=== PATIENT | female | born 1995 | race Caucasian/White ===

== ENCOUNTER 2018-04-13 20:50 | Outpatient (CLI) | payer OTHER ==
[~2018-04-13 20:50] MED LIST: PREN1TAB71 PO
[2018-04-13 21:40] VITALS: BP 93/51; PULSE 83; RESP 20
--- NOTE | 2018-04-13 23:17 | PN ---
Triage Information Date/Time 04/13/2018 Reason for visit: Flu like symptoms Weeks of Gestation 28 weeks and 2 days /Para Additional information 22 years old with IUP at 28 weeks and 2 days presented with complaint of Flu like symptoms . She denies any leaking of fluid, vaginal bleeding decreased movement or any other complaint. Denies any complication during her pr enatal course. Objective Vitals are stable Heart Rate: 130's Heart Rate Comments Appropriate for gestational age and category 1 Contractions: None Exam General appearance: Alert and oriented x4 appears to be in mild distress Abdomen: Soft, gravid, fundal height consider gestational age NST: Appropriate for gestational age Extremities: No calf tenderness, no click no edema HEENT: Nasal congestion Disposition: Discharge Assessment/Plan IUP at 28 weeks and 2 days URI. Cannot rule out flu no obstetrical issue at this point No evidence of labor or PPROM Patient will be sent to emergency room for further evaluation Discussed with the patient about adequate hydration. labor precautions kick count discussed Follow-up with primary OB office within 48 hours after discharge from the hospital Can take Tylenol, Benadryl as needed as needed with adequate fluid hydration Follow recommendation of emergency room after being seen All questions were answered. LUPIS GORDILLO MD Apr 13, 2018 23:17
[2018-04-14] MEDS ORDERED: AZIT250T PO (00:30)
--- NOTE | 2018-04-14 05:32 | TRIAGE ---
OB Triage Datetime Report Generated by CPN: 04/14/2018 05:31 Datetime: 04/13/2018 22:15 Stage of : OB Triage Datetime: 04/13/2018 21:40 Stage of : OB Triage Assessment Type: Triage Maternal Assessment Level of Consciousness: Fully Conscious DTR's/Clonus: DTRs 2+; No Clonus Headache: Frontal (Annotations: 05/08) Blurred Vision: No Respiratory Effort: Unlabored; Regular Rhythm; Equal Expansion Breath Sounds, Left: Clear and Equal Breath Sounds, Right: Clear and Equal Nausea/Vomiting: Denies RUQ Epigastric Pain: Denies Lower Extremities Edema: None Degree: None Upper Extremities Edema: None Degree: None Facial Edema: None Temperature Route: Oral Fall Risk Assessment History of Falling: (0) No Secondary Diagnosis: (0) No Ambulatory Aid: (0) Bedrest/Nurse Assist IV Therapy: (0) No Gait: (0) Normal/Bedrest/Immobile Mental Status: (0) Oriented to Own Ability Fall Score: 0 Fall Risk Score Definition: No Risk: No action required Pain Assessment Pain Scale: 0 Pain Presence: None/Denies Pain Type: N/A Pain Assessment Comments: Sinus pressure headache 05/08 Datetime: 04/13/2018 21:33 Labor Evaluation Monitor Mode: Palpation (Annotations: [place] applied) Resting Tone [place]: Relaxed Heart Rate Monitor Mode: External US (Annotations: Applied) Datetime: 04/13/2018 20:35 Time of Arrival: 04/13/2018 20:35 EGA: 28.2 Arrived By: Ambulatory Arrived From: Home Chief Complaint: Flu like symptoms, Movement: Present Contractions: Denies/Absent Rupture of Membranes: Denies Vaginal Bleeding: None Vaginal Discharge: Denies Recent Sexual Intercouse: Denies Abdominal Trauma: Not Applicable Patient Complaints: Cough; Other Additional Patient Complaints: sore throat and cough Time Provider Notified: 04/13/2018 22:15 Provider Notified: Dr. Israel Initial Plan: CEFM Datetime: 04/07/2018 15:43 Fall Score: 0 Fall Risk Score Definition: No Risk: No action required Datetime: 04/07/2018 15:42 EGA: 27.3
== END 2018-04-13 23:20 | disposition home or self-care (01) ==
LOC: OBT 20:50 → L-D 20:51 → OBT 23:20
PROVIDERS: ATTEND Obstetrics & Gynecology
DX: O26.893 Other specified pregnancy related conditions, third trimester (principal); Z3A.28 28 weeks gestation of pregnancy; J06.9 Acute upper respiratory infection, unspecified
CPT/HCPCS: G0463

== ENCOUNTER 2018-04-13 23:33 | Emergency (ER) | payer OTHER ==
[~2018-04-13] VITALS: Ht 157.5 cm; Wt 100.7 kg
[2018-04-13 23:38] VITALS: Ht 157.5 cm; Wt 100.7 kg
[2018-04-14] MEDS ORDERED: AZIT250T PO (00:30)
--- NOTE | 2018-04-14 00:32 | ERD ---
ER Documentation Chief Complaint Chief Complaint cough/congestion x 3 days, 28 weeks . cleared by ob HPI 22-year-old females. She is 28-weeks . She was cleared by OB and she has no OB complaints. She is complaining of 2 days of cough and sore throat and congestion. Today it got much worse. No fever. She is been taking Robitussin but is not helping. ROS All systems reviewed and are negative except as per history of present illness. Medications Home Meds Active Scripts Azithromycin* (Zithromax*) 250 Mg Tablet, 250 MG PO .ZPACK DIRECTED, #6 TAB TAKE 500 MG (2 TABS) THE FIRST DAY THEN 250 MG (1 TAB) DAYS 2-5 Prov:MATI COTTRELL PA-C 04/14/18 Reported Medications Vit No.130/Iron/FA ( Tablet) 1 Each Tablet, 1 EACH PO 04/07/18 Discontinued Scripts Promethazine HCl/Codeine (Prometh-Codein 6.25-10 mg/5 ml) 5 Ml Syrup, 5 ML PO QHS, #100 Prov:SARAH SEPULVEDA PA-C 10/25/15 Benzonatate* (Tessalon Perle*) 100 Mg Capsule, 100 MG PO TID, #30 CAP Prov:SARAH SEPULVEDA PA-C 10/25/15 Allergies Allergies: Coded Allergies: No Known Drug Allergies (Verified Allergy, Unknown, 04/07/18) PMhx/Soc Medical and Surgical Hx: pt denies Medical Hx History of Surgery: Yes (TONSILLECTOMY ) Anesthesia Reaction: No Hx Neurological Disorder: No Hx Respiratory Disorders: No Hx Cardiac Disorders: No Hx Psychiatric Problems: No Hx Miscellaneous Medical Probl: No Hx Alcohol Use: Yes (prior to being ) Hx Substance Use: No Hx Tobacco Use: No Smoking Status: Never smoker FmHx Family History: No diabetes Physical Exam Vitals Vital Signs Date Temp Pulse Resp B/P (MAP) Pulse Ox O2 O2 Flow FiO2 Time Delivery Rate 04/13/18 97.8 99 18 114/56 97 23:38 (75) Physical Exam INITIAL VITAL SIGNS: Reviewed by me GENERAL: Awake, alert and oriented x 4, well appearing, nontoxic, speaking in full sentences. No acute distress HEAD: Atraumatic NECK: Supple. No masses. Full range of motion. No meningismus. No midline tenderness. EYES: EOMI. PERRL. EAR: No tenderness over the mastoids bilaterally. No exudates in the canals. TMs nonerythematous. NOSE: Normal nose. THROAT: No tonilar erythema or edema. No exudates. Uvula midline. No kissing tonsils. RESPIRATORY: Clear to auscultation bilaterally. Symmetric chest wall rise. No wheezing or rales. No accessory muscle use. CV: Regular rate and rhythm. No murmurs, rubs, or gallops. ABDOMEN: Soft, non-distended. Nontender. Negative [place]. Negative [place] point tenderness. No CVA tenderness bilaterally. No guarding. No rebound. : Deffered. Procedures/MDM Patient presents with bronchitis. Unlikely pneumonia. She is but has no OB complaints and was already cleared by labor and delivery. A [id number] prescription for azithromycin was given. Patient counseled regarding my diagnostic impression and care plan. Prior to discharge all questions answered. Pt agrees with treatment plan and understands strict return precautions. Pt is instructed to follow up with primary care provider within 24-48 hours. Precautionary instructions provided including instructions to return to the ER if not improving or for any worsening or changing symptoms or concerns. Departure Diagnosis: Primary Impression: Bronchitis Condition: Stable Patient Instructions: Bronchitis, Antiobiotic Treatment (Adult) Additional Instructions: Call your primary care doctor TOMORROW for an appointment during the next 1-2 days.See the doctor sooner or return here if your condition worsens before your appointment time. MATI COTTRELL PA-C Apr 14, 2018 00:32
[2018-04-14 00:41] VITALS: BP 108/59; PULSE 117; RESP 20
== END 2018-04-14 00:43 | disposition home or self-care (01) ==
LOC: FTE 23:33
DX: O99.511 Diseases of the respiratory system complicating pregnancy, first trimester (principal); J40 Bronchitis, not specified as acute or chronic; Z3A.28 28 weeks gestation of pregnancy
CPT/HCPCS: 99283

== ENCOUNTER 2018-05-09 07:43 | Outpatient (CLI) | payer OTHER ==
[~2018-05-09] VITALS: Ht 157.5 cm; Wt 107.2 kg
[~2018-05-09 07:43] MED LIST changes: +AZIT250T PO
[2018-05-09 08:10] VITALS: Ht 157.5 cm; Wt 107.2 kg
[2018-05-09 08:13] VITALS: BP 106/64; PULSE 104; RESP 19
--- NOTE | 2018-05-09 10:22 | PN ---
Triage Information Date/Time Reason for visit: Uterine contractions Weeks of Gestation 31+ /Para 3/1 Diabetes: none Hypertention: none Objective Vital Signs Date Temp Pulse Resp B/P (MAP) Pulse Ox O2 O2 Flow FiO2 Time Delivery Rate 05/09/18 98.2 104 19 106/64 Room Air 08:13 (78) Heart Rate: 140's Contractions: None Results/Medications Results 24 hrs Laboratory Tests Test 05/09/18 08:21 05/09/18 08:48 Urine Color YELLOW Urine Clarity CLOUDY A Urine pH 7.0 Urine Specific [place] 1.009 Urine Ketones NEGATIVE Urine Nitrite NEGATIVE Urine Bilirubin NEGATIVE Urine Urobilinogen NEGATIVE Urine Leukocyte Esterase 3+ H Urine Microscopic RBC 6 H Urine Microscopic WBC 9 H Urine Squamous Epithelial Cells MODERATE Urine Amorphous Crystals FEW A Urine Bacteria MODERATE Urine Hemoglobin NEGATIVE Urine Glucose NEGATIVE Urine Total Protein NEGATIVE Fibronectin NEGATIVE Disposition: Discharge Assessment/Plan BPP 12/08 CXL 4.1cm Macrobid is given Questions answered Follow up with her provider precautions discussed PHILLIP PACHECO M.D. May 09, 2018 10:22
[2018-05-09] MEDS ORDERED: NITR-58 PO (10:26)
--- NOTE | 2018-05-09 10:35 | TRIAGE ---
OB Triage Datetime Report Generated by CPN: 05/09/2018 10:35 Datetime: 05/09/2018 10:00 Stage of : OB Triage Maternal Assessment Level of Consciousness: Fully Conscious Labor Evaluation Frequency: 2UC/HR Monitor Mode: External Duration (sec)2399: 70-80 Quality: Mild Resting Tone [place]: Relaxed Heart Rate FHR Baseline Rate: 145 Monitor Mode: External US Variability: Moderate 6-25 bpm Accelerations: 15X15 Decelerations: None Category: Category I Pain Assessment Pain Scale: 0 Pain Goal: 3 Vaginal Exam Membrane Status: Intact Vaginal Bleeding: None Datetime: 05/09/2018 09:00 Stage of : OB Triage Maternal Assessment Level of Consciousness: Fully Conscious Labor Evaluation Frequency: 2UC/HR Monitor Mode: External Duration (sec)2399: 70-80 Quality: Mild Resting Tone [place]: Relaxed Heart Rate FHR Baseline Rate: 145 Monitor Mode: External US Variability: Moderate 6-25 bpm Accelerations: 15X15 Decelerations: None Category: Category I Pain Assessment Pain Scale: 0 Pain Goal: 3 Vaginal Exam Membrane Status: Intact Vaginal Bleeding: None Datetime: 05/09/2018 08:17 Assessment Type: Triage Maternal Assessment Level of Consciousness: Fully Conscious DTR's/Clonus: DTRs 2+; No Clonus Headache: Denies Blurred Vision: No Respiratory Effort: Unlabored; Regular Rhythm; Equal Expansion Breath Sounds, Left: Clear and Equal Breath Sounds, Right: Clear and Equal Nausea/Vomiting: Denies RUQ Epigastric Pain: Denies Lower Extremities Edema: None Degree: None Upper Extremities Edema: None Degree: None Facial Edema: None Fall Risk Assessment History of Falling: (0) No Secondary Diagnosis: (0) No Ambulatory Aid: (0) Bedrest/Nurse Assist IV Therapy: (0) No Gait: (0) Normal/Bedrest/Immobile Mental Status: (0) Oriented to Own Ability Fall Score: 0 Fall Risk Score Definition: No Risk: No action required Datetime: 05/09/2018 08:16 Time of Arrival: 05/09/2018 07:43 EGA: 32.0 Arrived By: Ambulatory Arrived From: Home Chief Complaint: PT CAME IN COMPLAINING OF UC'S AND DFM Movement: Present Rupture of Membranes: Denies Vaginal Bleeding: None Vaginal Discharge: Denies Recent Sexual Intercouse: Denies Abdominal Trauma: Not Applicable Patient Complaints: Cramping; Other Time Provider Notified: 05/09/2018 08:20 Provider Notified: DR LUIS Initial Plan: NST/BPP/UA/CVL/FFN/ Datetime: 04/13/2018 22:30 Stage of : OB Triage Labor Evaluation Frequency: 0 Monitor Mode: External Pattern: Normal: <= 5 Contractions in 10 Minutes Resting Tone [place]: Relaxed Heart Rate FHR Baseline Rate: 145 Monitor Mode: External US Variability: Moderate 6-25 bpm Accelerations: 15X15 Decelerations: None Category: Category I Datetime: 04/13/2018 21:40 Fall Score: 0 Fall Risk Score Definition: No Risk: No action required Datetime: 04/13/2018 20:35 EGA: 28.2 Datetime: 04/07/2018 15:43 Fall Score: 0 Fall Risk Score Definition: No Risk: No action required Datetime: 04/07/2018 15:42 EGA: 27.3
== END 2018-05-09 10:30 | disposition home or self-care (01) ==
LOC: OBT 07:43 → L-D 07:44 → OBT 10:30
PROVIDERS: ATTEND Obstetrics & Gynecology
DX: O60.03 Preterm labor without delivery, third trimester (principal); O36.8130 Decreased fetal movements, third trimester, not applicable or unspecified; Z3A.31 31 weeks gestation of pregnancy
CPT/HCPCS: 76817; 76818; 81001; 82731; G0463

== ENCOUNTER 2018-06-14 17:23 | Outpatient (CLI) | payer OTHER ==
[~2018-06-14 17:23] MED LIST changes: -AZIT250T PO; +NITR-58 PO
--- NOTE | 2018-06-14 19:43 | PN ---
Triage Information Date/Time Reason for visit: size date discrepancy Weeks of Gestation 37 weeks /Para Diabetes: none Hypertention: none Objective Heart Rate: 120's Heart Rate Comments Reactive Results/Medications Imaging Results EFW and BPP normal Disposition: Discharge Assessment/Plan Follow up in clinic in one week. MARTI ECHOLS MD Jun 14, 2018 19:43
== END 2018-06-14 20:17 | disposition home or self-care (01) ==
LOC: OBT 17:23 → L-D 17:24 → OBT 20:17
PROVIDERS: ATTEND Obstetrics & Gynecology
DX: O26.843 Uterine size-date discrepancy, third trimester (principal); Z3A.37 37 weeks gestation of pregnancy
CPT/HCPCS: 76816; 76818; G0463

== ENCOUNTER 2018-06-28 15:10 | Inpatient (IN) | payer OTHER ==
[~2018-06-28] VITALS: Ht 157.5 cm; Wt 105.1 kg
[~2018-06-28 15:10] MED LIST changes: -NITR-58 PO
[2018-06-28 15:27] VITALS: Ht 157.5 cm; Wt 105.1 kg
[2018-06-28] MEDS ORDERED: METHYLERGONOVINE 0.2 MG INJ IM PRN (15:30)
[2018-06-28] MEDS ORDERED: OXYTOCIN 30 UNITS/LR 500 ML IV PRN (15:30)
[2018-06-28] MEDS ORDERED: OXYTOCIN 30 UNITS/LR 500 ML IV SCH ×2 (15:30)
[2018-06-28] MEDS ORDERED: CEFAZOLIN 2 GM/50 ML (PMX) 50 ML IVPB ONE (15:30)
[2018-06-28] MEDS ORDERED: MISOPROSTOL 200 MCG TAB PR PRN (15:30)
[2018-06-28] MEDS ORDERED: CARBOPROST 250 MCG INJ IM PRN (15:30)
[2018-06-28 15:50] VITALS: BP 108/62; PULSE 86; RESP 20
[2018-06-28] MEDS ORDERED: LACTATED RINGER'S 1,000 ML IV ONE (17:00)
[2018-06-28] MEDS: LACTATED RINGER'S 1,000 ML IV SCH (19:31)
[2018-06-29] MEDS: LACTATED RINGER'S 1,000 ML IV SCH ×3 (03:16→19:00)
--- NOTE | 2018-06-29 10:18 | HP ---
Date/Time of Note Date/Time of Note DATE: 06/29/18 TIME: 10:13 OB - History Hx of Present Free Text/Dictation Late entry note. Patient seen on 06/28/2018 22 years old -0-1-1 with single intrauterine at 39 weeks and 1 day admitted for elective delivery for LGA. Ultrasound on 06/20/2018 at perinatology center with estimated weight of 4402 grams, due to LGA delivery recommended at 39 weeks. She states good movement. She denies nausea, vomiting, shortness of breath, chest pain, headache, visual changes, vaginal bleeding or LOF. Risk factors: 1. LGA 2. Obesity (BMI 42.4) Chief Complaint: Scheduled for elective delivery Estimated Due Date: July 04, 2018 : 3 Para: 1 Spontaneous : 1 Therapeutic : 0 Care: Good Care Ultrasounds: Normal mid trimester US Obstetrical Complications: None Medical Complications: None Past Family/Social History * Past Medical, Surgical, Family and Obstetric Histories reviewed from chart. Blood Type: B+ Rubella: not immune RPR/VDRL: Negative GBS Status: Negative HBsAG: Negative OB Admission Exam Vital Signs Vital Signs Vital Signs Date Temp Pulse Resp B/P (MAP) Pulse Ox O2 O2 Flow FiO2 Time Delivery Rate 06/28/18 98.6 86 20 108/62 Room Air 15:50 (77) Physical Exam HEENT: WNL Heart: Rhythm Normal Lungs: Clear Abdomen: WNL Extremities: Normal Cervical Dilatation: Fingertip Effacement: 0% Station: -3 Membranes: Intact Heart Rate: 140's Accelerations: Accelerations Present Decelerations: No Decelerations Varibility: Moderate Contractions on Admission: None Last 72 hours Lab Results CBC & BMP 06/28/18 16:32 OB Assessment/Plan Other plan: 22 years old -0-1-1 with single intrauterine at 39 weeks and 1 day with LGA. Route of delivery, vaginal versus elective delivery discussed in detail with patient in the clinic. She expressed understanding all of her questions answered she decided to have elective delivery initially. However she desires to have another ultrasound, repeat ultrasound with EFW of 3628 g. I called perinatologist, left a message if it is possible review both ultrasound and give us and advise regarding EFW. - FHR: No sign of metabolic acidosis- Category I - Continuous EFM, toco - CBC, blood type and screen - Please see the orders - B+/Rubella: Nonimmune, please receive vaccine after delivery - GBS: Negative - Admission, expectation, further management discussed in detail with patient and her . Both expressed understanding. All of their questions answered. BALWINDER LUIS June 29, 2018 10:18
[2018-06-29] MEDS: MISOPROSTOL 50 MCG CAPSULE PO SCH ×2 (14:14→18:11)
--- NOTE | 2018-06-29 15:36 | PN ---
Date/Time of Note Date/Time of Note DATE: 06/29/18 TIME: 15:35 OB Subjective Subjective Subjective Late entry note. Patient seen at 1020 this morning patient seen and examined. She states good movement. She denies nausea, vomiting, shortness of breath, chest pain, abdominal pain between contractions, headache, visual changes, vaginal bleeding or LOF. OB Objective Objective Objective Vital Signs Date Temp Pulse Resp B/P (MAP) Pulse Ox O2 O2 Flow FiO2 Time Delivery Rate 06/28/18 98.6 86 20 108/62 Room Air 15:50 (77) General: Patient appears well, alert and oriented, NAD, appropriate mood and affect ABD: gravid, soft, non-tender. Back: No CVA tenderness (B/L) LE: Mild edema. No clubbing, cyanosis, edema, thigh or calf tenderness bilaterally FHT: 135 bpm , moderate variability with acceleration, no deceleration-category I Contractions: None OB Assessment/Plan Other plan: 22 years old -0-1-1 with single intrauterine at 39 weeks and 2 days with LGA. Route of delivery, vaginal versus elective delivery discussed in detail with patient and her . Dr. Mcgill reviewed the ultrasound on 06/20/2018 at perinatology center and confirmed LGA. LGA: I have discussed there are greater risk with increase weight compare to the general obstetric population which including but not limited to Labor abnormalities, increase risk of delivery and shoulder dystocia with risk of fracture of the clavicle, humerous and damage to the nerves of the brachial plexus, risk of morbidity for infant. Persistent injury is more common with higher weights, and weights greater than 4,500 gram in particular. I discussed some severe cases of shoulder dystocia may result in hypoxic- ischemic encephalopathy and even . I also discussed: -Shoulder dystocia and brachial plexus injury can occur with delivery too. [place] complications and injury (eg, low score, assisted ventilation longer than 30 minutes, increased rates of admission and prolonged admission (greater than 3 days) to a intensive care unit. - Increase risk of maternal hemorrhage after delivery, significant vaginal lacerations and fourth-degree lacerations She and her expressed understanding, repeat the risks. All of their questions answered. She states understanding the risks and would like to have trial of labor. - FHR: No sign of metabolic acidosis- Category I - Continuous EFM, toco - CBC, blood type and screen - Please see the orders - B+/Rubella: Nonimmune, please receive vaccine after delivery - GBS: Negative Admission, procedures, expectations, risks and possible complications have been discussed in detail with the patient. Risk of vaginal delivery including but not limited to bleeding, infection, cervical laceration, placental retention, injury to fetus, blood transfusion, blood transfusion related infection, risk of anesthesia, adhesion, cervical laceration, episiotomy/laceration, possible delivery with risk of bleeding, infection, injury to other organs (bowel, bladder, ureter, vessels, nerves), injury to fetus, blood transfusion, blood transfusion related infection, risk of anesthesia, scar and hernia formation, needs for future , removal of uterus or any other indicated surgery discussed with the patient. She expressed understanding and repeats the risks. All of her questions were answered. She signed the informed consent. PHYSICIAN'S VERIFICATION OF INFORMED CONSENT The patient and her counseled regarding the procedure, its indications, risks, potential complications and alternatives and any questions were answered. Consent was obtained. PLANNED PROCEDURE/TREATMENT: Vaginal delivery, episiotomy, repair of laceration possible delivery BALWINDER LUIS June 29, 2018 15:36
[2018-06-30] MEDS: MISOPROSTOL 50 MCG CAPSULE PO SCH (00:49)
[2018-06-30] MEDS ORDERED: ACETAMINOPHEN 325 MG TAB PO PRN ×2 (01:30→16:30)
[2018-06-30] MEDS: LACTATED RINGER'S 1,000 ML IV SCH ×3 (03:00→12:05)
[2018-06-30] MEDS ORDERED: OXYTOCIN 30 UNITS/LR 500 ML IV SCH ×2 (07:00→16:24)
[2018-06-30] MEDS ORDERED: FENTAnyl 2MCG/ML-ROPIV 0.2% 100 ML ONE (09:25)
--- NOTE | 2018-06-30 16:23 | LDN ---
Date/Time of Note Date/Time of Note DATE: 06/30/18 TIME: 16:21 Delivery Summary 06/30/2018 Patient had been undergoing induction due to suspected macrosomia. I was called by RN due to BOA. Precipitous delivery noted while arrived to the room baby had already was delivered by RN. Cord was clamped and cut. Baby was handed to the RN to transfer to warmer Cord was clamped and cut. Cord blood was obtained. Placenta delivered complete. Initially increased vaginal bleeding noted that controlled using uterine massage. EBL 500 cc Second-degree perineal tear noted that repaired using 2-0 chromic. Hemostasis was complete. Placenta Delivered: Spontaneously Meconium: none Episiotomy: No Indication for episiotomy N/A Perineal laceration: 2 Laceration repair: Second-degree perineal laceration repaired using 2-0 chromic Anesthesia type: Epidural Estimated blood loss: 500 Sponge & Needle done & correct: Yes All needle counts correct: Yes Any foreign bodies felt in the: No Infant Delivery Information Sex Infant Sex: female Apgars 1 Minute: 9 5 Minute: 9 Suctioning Nose & mouth suctioned at mary: Yes Delee suction performed: Yes Umbilical Cord Umbilical cord with: 3 Vessels Cord presentations: no nuchal cord Cord Blood was obtained: Yes LUPIS GORDILLO MD June 30, 2018 16:23
[2018-06-30] MEDS ORDERED: DIPHENHYDRAMINE 25 MG CAP PO PRN (16:30)
[2018-06-30] MEDS ORDERED: LANOLIN HPA 1 PKT TOP PRN (16:30)
[2018-06-30] MEDS ORDERED: CARBOPROST 250 MCG INJ IM PRN (16:30)
[2018-06-30] MEDS ORDERED: METHYLERGONOVINE 0.2 MG INJ IM PRN (16:30)
[2018-06-30] MEDS ORDERED: NACL 0.9% 3 ML SYG IV SCH (16:30)
[2018-06-30] MEDS ORDERED: ZOLPIDEM 5 MG TAB PO PRN (16:30)
[2018-06-30] MEDS ORDERED: OXYTOCIN 30 UNITS/LR 500 ML IV PRN (16:30)
[2018-06-30] MEDS ORDERED: MISOPROSTOL 200 MCG TAB PR PRN (16:30)
[2018-06-30] MEDS ORDERED: ONDANSETRON 4 MG INJ IV PRN (16:30)
[2018-06-30 18:00] VITALS: BP 125/79; PULSE 64; RESP 18
[2018-06-30] MEDS: IBUPROFEN 600 MG TAB PO SCH (18:58)
[2018-06-30] MEDS: WITCH HAZEL/GLYCERIN PAD PR PRN (18:58)
[2018-06-30 20:30] VITALS: BP 137/83; PULSE 74; RESP 18
[2018-06-30] MEDS: SENNA/DOCUSATE NA (8.6MG/50MG) TAB PO SCH (20:38)
[2018-06-30] MEDS: HYDROCODONE/APAP (5/325) TAB PO PRN (20:43)
[2018-06-30] MEDS ORDERED: FENTAnyl 2MCG/ML-ROPIV 0.2% 100 ML BAG EPI SCH (21:30)
[2018-06-30] MEDS ORDERED: NALOXONE (0.4 MG/ML) INJ IV PRN (21:30)
[2018-07-01] MEDS: IBUPROFEN 600 MG TAB PO SCH ×4 (00:09→19:34)
[2018-07-01 00:15] VITALS: BP 129/82; PULSE 75; RESP 18
[2018-07-01 03:30] VITALS: BP 111/63; PULSE 65; RESP 18
[2018-07-01 08:00] VITALS: BP 116/68; PULSE 70; RESP 18
[2018-07-01] MEDS: SENNA/DOCUSATE NA (8.6MG/50MG) TAB PO SCH ×2 (09:00→21:36)
[2018-07-01 16:00] VITALS: BP 116/65; PULSE 70; RESP 18
[2018-07-01 16:30] VITALS: BP 108/60; PULSE 81; RESP 18
[2018-07-01] MEDS: HYDROCODONE/APAP (5/325) TAB PO PRN (17:16)
--- NOTE | 2018-07-01 18:44 | QN ---
Documentation Comment no c/o had BMvss afebrile ' fundus firm lochia min calf neg for tenderness atable s/p plan discharge home in am JOSSY SPAIN MD July 01, 2018 18:44
[2018-07-01 21:30] VITALS: BP 119/80; PULSE 91; RESP 18
--- NOTE | 2018-07-01 21:35 | DS ---
Date/Time of Note Date/Time of Note DATE: 07/01/18 TIME: 21:32 Obstetrical Discharge Record Final Diagnosis Final Diagnosis: Term delivered Other Final Diagnosis 22 years old G3 P 2012 s/p normal vaginal delivery at 39 weeks and 2 days. PPD#1 course is unremarkable. She is ambulating and tolerating regular diet. She is voiding without difficulty. Pain is controlled on current medication. - AF, VSS - Contraception methods with R/B/A/FR discussed - Continue care - Rubella: Nonimmune, received rubella vaccine - Discharge home tomorrow - Rx and instruction given - Follow up in 2 and 6 weeks at clinic Complications Induction: Yes (For LGA) Condition on Discharge Physical Assessment Last Vitals: Vital Signs Date Temp Pulse Resp B/P (MAP) Pulse Ox O2 O2 Flow FiO2 Time Delivery Rate 07/01/18 98.7 81 18 108/60 16:30 (76) 07/01/18 Room Air 08:00 Voiding: Yes Bowel Movement: Yes Breast: Soft, non-tender Fundus: Firm Calf Tenderness: No Patient Condition: Stable BALWINDER LUIS July 01, 2018 21:35
[2018-07-02] MEDS: IBUPROFEN 600 MG TAB PO SCH ×3 (00:30→11:02)
[2018-07-02 03:02] VITALS: BP 109/66; PULSE 76; RESP 18
[2018-07-02 08:15] VITALS: BP 108/56; PULSE 77; RESP 18
[2018-07-02] MEDS: SENNA/DOCUSATE NA (8.6MG/50MG) TAB PO SCH (09:00)
[2018-07-02] MEDS ORDERED: MEASLES,MUMPS,RUBELLA VACCINE INJ SC* ONE (10:30)
[2018-07-02] MEDS ORDERED: DIPHTH/TET/ACEL PERTUSS (ADULT) 0.5 ML VIAL IM* ONE (10:30)
[2018-07-02] MEDS: WITCH HAZEL/GLYCERIN PAD PR PRN (11:02)
--- NOTE | 2018-07-03 14:37 | DELSUM ---
Delivery Summary A-C Datetime Report Generated by CPN: 07/03/2018 14:37 DELIVERY PERSONNEL Caregivers Homecare: [facility] MATERNAL INFORMATION Delivery Anesthesia: Epidural Medications in Delivery: See anesthesia records Delivery QBL (ml): 500 Placenta Cultured: No Maternal Complications: None RN Comments: Involuntary pushing. Baby born as doctor entering the room, nurse assisted . LABOR SUMMARY EDC: 07/04/2018 00:00 No. Babies in Womb: 1 Attempted: No Labor Anesthesia: Epidural LABOR INFORMATION Reason for Induction: Other Reason for Induction- Other: change in EFW Onset of Labor: 06/30/2018 10:00 Complete Dilatation: 06/30/2018 15:30 Cervical Ripening Agents: Cytotec @ Oxytocin: Induction Group B Beta Strep: Negative Antibiotics # of Doses: 0 Steroids Given: None Reason Steroids Not Administered: Not Applicable MEMBRANES Membranes Rupture Method: Spontaneous Rupture of Membranes: 06/30/2018 14:00 Length of Rupture (hr): 1.52 Amniotic Fluid Color: Clear Amniotic Fluid Amount: Large Amniotic Fluid Odor: None STAGES OF LABOR Stage 1 hr: 5 Stage 1 min: 30 Stage 2 hr: 0 Stage 2 min: 1 Stage 3 hr: 0 Stage 3 min: 4 Total Time in Labor hr: 5 Total Time in Labor min: 35 VAGINAL DELIVERY Episiotomy: None Laceration Extension: Second Degree Laceration Type: Perineal Laceration Repair: Yes Initial Vag Sponge Count: 10 Final Vag Sponge Count: 10 Initial Vag Sharps Count: 2 Final Vag Sharps Count: 2 Sponge Count Correct: Yes; Vaginal Sweep Performed Sharps Count Correct: Yes BABY A INFORMATION Delivery Date/Time: 06/30/2018 15:31 Method of Delivery: Vaginal Born in Route : No : N/A Forceps: N/A Vacuum Extraction: N/A Shoulder Dystocia : N/A SHOULDER DYSTOCIA BABY A Infant Delivery Date/Time: 06/30/2018 15:31 PRESENTATION/POSITION BABY A Presentation: Cephalic Cephalic Presentation: Vertex Vertex Position: Left Occipital Anterior Breech Presentation: N/A PLACENTA INFORMATION BABY A Placenta Delivery Time : 06/30/2018 15:35 Placenta Method of Delivery: Spontaneous Placenta Status: Delivered SCORES BABY A Heart Rate 1 min: >100 bpm Resp Effort 1 min: Good Cry Reflex Irritability 1 min: Cough/Sneeze/Pulls Away Muscle Tone 1 min: Active Motion Color 1 min: Blue/Pale Resuscitation Effort 1 min: Tactile Stimulation SCORE 1 MIN: 8 Heart Rate 5 min: >100 bpm Resp Effort 5 min: Good Cry Reflex Irritability 5 min: Cough/Sneeze/Pulls Away Muscle Tone 5 min: Active Motion Color 5 min: Body [place], Extremit Blue Resuscitation Effort 5 min: Tactile Stimulation SCORE 5 MIN: 9 INFANT INFORMATION BABY A Gestational Age at Delivery: 39.3 Gestational Status: Full Term- 39- 40.6 Weeks Outcome : Liveborn Condition : Stable Infant Sex: Female IDENTIFICATION/MEDS BABY A ID Band Number: [id number] ID Band Location: Right Leg; Left Arm Sensor Applied: Yes Sensor Number: [id number] Sensor Location : Cord Clamp Vitamin K Given : Aquamephyton 0.5 mg IM; Left Thigh Erythromycin Given: Given Both Eyes WEIGHT/LENGTH BABY A Birthweight (gm): 4135 Infant Weight (lb): 9 Weight (oz): 2 Length (in): 21.00 Length (cm): 53.34 CORD INFORMATION BABY A No. 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
== END 2018-07-02 14:15 | disposition home or self-care (01) | DRG 807 ==
LOC: L-D 15:10 → PP1 06-30 17:59
PROVIDERS: ADMIT Obstetrics & Gynecology; ATTEND Obstetrics & Gynecology
PROC: 10E0XZZ Delivery of Products of Conception, External Approach (ICD-10-PCS; principal; 2018-06-30)
PROC: 0KQM0ZZ Repair Perineum Muscle, Open Approach (ICD-10-PCS; 2018-06-30)
DX: O99.214 Obesity complicating childbirth (principal); Z37.0 Single live birth; E66.9 Obesity, unspecified; O36.63X0 Maternal care for excessive fetal growth, third trimester, not applicable or unspecified; O70.1 Second degree perineal laceration during delivery; Z3A.39 39 weeks gestation of pregnancy
CPT/HCPCS: 62322; 76815; 76818; 85025; 85610; 85730; 86592; 86850; 86900; 86901; 87340; 90715; J2590; J3010; J7120